=== PATIENT | female | born 1960 | race Caucasian/White ===

== ENCOUNTER 2019-11-13 03:12 | Emergency (ER) | payer BC ==
[2019-11-13] MEDS ORDERED: HYDROmorphone 1 MG/ML Syringe IVPUSH ONE (03:38)
[2019-11-13] MEDS ORDERED: Ondansetron 4 MG/2 ML SDV IVPUSH ONE (03:38)
[2019-11-13] MEDS ORDERED: Sodium Chloride 0.9% 1,000 ML IV SCH (03:45)
--- NOTE | 2019-11-13 03:45 | EDM.PDOC ---
ED HPI GENERAL MEDICAL PROBLEM - General Chief Complaint: Flank Pain Stated Complaint: LEFT SIDE PAIN Time Seen by Provider: 11/13/19 03:28 Source of Information: Reports: Patient History Limitations: Reports: No Limitations - History of Present Illness INITIAL COMMENTS - FREE TEXT/NARRATIVE: This is a 59-year-old female. She had onset of severe left flank pain about 1 hour prior to coming to the ER. She says she has a history of kidney stones in the past and this feels like a kidney stone. For the last 2 to 3 days she been having pressure in the left flank and some dysuria and her doctor put her on some Cipro 2 days ago for which she has been taking but it really has not helped her symptoms. With this severe pain this morning with that woke her she had some nausea but she has not had any vomiting. Due to the pain she comes to the ER for evaluation. She denies any fever or chills denies any cough or congestion. Left Flank Pain Score (Numeric/FACES): 9 - Related Data Allergies Allergy/AdvReac Type Severity Reaction Status Date / Time ketorolac [From Toradol] Allergy Severe Swollen Verified 11/13/19 03:19 Tongue tramadol Allergy Severe Swollen Verified 11/13/19 03:19 Tongue Home Meds: Home Meds Ciprofloxacin HCl [Cipro] 250 mg PO DAILY 11/13/19 [History] Escitalopram Oxalate [Lexapro] 10 mg PO DAILY 11/13/19 [History] Hydrocodone/Acetaminophen [Hydrocodone-Acetamin 5-325 mg] 1 each PO Q4H PRN #12 tablet 11/13/19 [Rx] Promethazine [Phenergan] 25 mg PO Q6H PRN #12 tab 11/13/19 [Rx] Past Medical History Genitourinary History: Reports: Renal Calculus Psychiatric History: Reports: Depression Social & Family History - Tobacco Use Smoking Status *Q: Never Smoker - Caffeine Use Caffeine Use: Reports: None - Recreational Drug Use Recreational Drug Use: No ED ROS GENERAL - Review of Systems Review Of Systems: See Below Constitutional: Denies: Fever, Chills HEENT: Reports: No Symptoms Respiratory: Reports: No Symptoms Cardiovascular: Reports: No Symptoms Endocrine: Reports: No Symptoms GI/Abdominal: Reports: Nausea. Denies: Abdominal Pain, Diarrhea, Vomiting : Reports: Dysuria, Flank Pain Musculoskeletal: Reports: No Symptoms Skin: Reports: No Symptoms Neurological: Reports: No Symptoms Psychiatric: Reports: No Symptoms ED EXAM, RENAL/ - Physical Exam Exam: See Below Exam Limited By: No Limitations General Appearance: Alert, WD/WN, Mild Distress. No: Anxious Eye Exam: Bilateral Eye: Normal Inspection Ears: Normal External Exam Nose: Normal Inspection Throat/Mouth: Normal Inspection, Normal Lips, Normal Voice, No Airway Compromise Head: Normocephalic Neck: Supple Respiratory/Chest: No Respiratory Distress, Lungs Clear, Normal Breath Sounds Cardiovascular: Regular Rate, Rhythm, No Murmur GI/Abdominal: Soft, Non-Tender Back Exam: Full Range of Motion, CVA Tenderness (L) Extremities: Normal Inspection, Normal Range of Motion Neurological: Alert, Oriented Psychiatric: Normal Affect, Normal Mood Skin Exam: Warm, Dry Course - Vital Signs Last Recorded V/S: Last Vital Signs Temp 97.9 F 11/13/19 03:20 Pulse 87 11/13/19 03:20 Resp 15 11/13/19 03:20 BP 150/102 H 11/13/19 03:20 Pulse Ox 96 11/13/19 03:20 - Orders/Labs/Meds Orders: Active Orders 24 hr Category Date Time Status Abdomen Pelvis wo Cont [CT] Stat Exams 11/13/19 03:39 Taken Sodium Chloride 0.9% [Normal Saline] 1,000 ml Med 11/13/19 03:45 Active IV ASDIRECTED Medication Orders Sodium Chloride (Normal Saline) 1,000 mls @ 1,000 mls/hr IV ASDIRECTED DAVID Last Admin: 11/13/19 03:43 Dose: 1,000 mls/hr Labs: Laboratory Tests 11/13/19 11/13/19 11/13/19 Range/Units 03:30 03:30 04:55 WBC 7.41 (3.98-10.04) K/mm3 RBC 4.50 (3.98-5.22) M/mm3 Hgb 11.5 (11.2-15.7) gm/dl Hct 35.8 (34.1-44.9) % MCV 79.6 (79.4-94.8) fl MCH 25.6 (25.6-32.2) pg MCHC 32.1 L (32.2-35.5) g/dl RDW Std Deviation 52.2 H (36.4-46.3) fL Plt Count 263 (182-369) K/mm3 MPV 10.8 (9.4-12.3) fl Neut % (Auto) 65.2 (34.0-71.1) % Lymph % (Auto) 20.5 (19.3-51.7) % [place] % (Auto) 13.0 H (4.7-12.5) % Eos % (Auto) 1.2 (0.7-5.8) Baso % (Auto) 0.1 (0.1-1.2) % Neut # (Auto) 4.83 (1.56-6.13) K/mm3 Lymph # (Auto) 1.52 (1.18-3.74) K/mm3 [place] # (Auto) 0.96 H (0.24-0.36) K/mm3 Eos # (Auto) 0.09 (0.04-0.36) K/mm3 Baso # (Auto) 0.01 (0.01-0.08) K/mm3 Sodium 143 (136-145) mEq/L Potassium 3.7 (3.5-5.1) mEq/L Chloride 108 H (98-107) mEq/L Carbon Dioxide 25 (21-32) mEq/L Anion Gap 13.7 (5-15) BUN 15 (7-18) mg/dL Creatinine 0.7 (0.55-1.02) mg/dL Est Cr Clr Drug Dosing 86.23 mL/min Estimated GFR (MDRD) > 60 (>60) mL/min BUN/Creatinine Ratio 21.4 H (14-18) Glucose 111 H (74-106) mg/dL Calcium 8.8 (8.5-10.1) mg/dL Total Bilirubin 0.4 (0.2-1.0) mg/dL AST 13 L (15-37) U/L ALT 22 (14-59) U/L Alkaline Phosphatase 118 H (46-116) U/L Total Protein 7.4 (6.4-8.2) g/dl Albumin 3.9 (3.4-5.0) g/dl Globulin 3.5 gm/dL Albumin/Globulin Ratio 1.1 (1-2) Urine Color Yellow (Yellow) Urine Appearance Clear (Clear) Urine pH 6.0 (5.0-8.0) Ur Specific [place] 1.025 (1.005-1.030) Urine Protein Trace H (Negative) Urine Glucose (UA) Negative (Negative) Urine Ketones Negative (Negative) Urine Occult Blood Trace-lysed H (Negative) Urine Nitrite Negative (Negative) Urine Bilirubin Negative (Negative) Urine Urobilinogen 0.2 (0.2-1.0) Ur Leukocyte Esterase Negative (Negative) Urine RBC 0-5 (0-5) /hpf Urine WBC Not seen (0-5) /hpf Ur Squamous Epith Cells 5-10 H (0-5) /hpf Urine Bacteria Rare (FEW) /hpf Urine Mucus Few (FEW) /hpf Meds: Medications Generic Name Dose Route Start Last Admin Trade Name Freq PRN Reason Stop Dose Admin Sodium Chloride 1,000 mls @ 1,000 mls/hr 11/13/19 03:45 11/13/19 03:43 Normal Saline IV 1,000 mls/hr ASDIRECTED DAVID Administration Discontinued Medications Generic Name Dose Route Start Last Admin Trade Name Freq PRN Reason Stop Dose Admin Hydromorphone HCl 0.5 mg 11/13/19 03:38 11/13/19 03:51 Dilaudid IVPUSH 11/13/19 03:39 0.5 mg ONETIME ONE Administration Ondansetron HCl 4 mg 11/13/19 03:38 11/13/19 03:43 Zofran IVPUSH 11/13/19 03:39 4 mg ONETIME ONE Administration - Radiology Interpretation Free Text/Narrative:: Scan of the abdomen shows renal stones but no ureteral stones and no hydronephrosis noted. - Re-Assessments/Exams Free Text/Narrative Re-Assessment/Exam: 11/13/19 05:39 To the patient regarding the test results. She is feeling much better now and she is happy that she does not have a bladder infection since she has been on the Cipro. Her white count is normal her electrolytes are normal I am going to discharge her to home with a urine strainer since I think she might have passed a kidney stone. Departure - Departure Time of Disposition: 05:40 Disposition: Home, Self-Care 01 Condition: Fair Clinical Impression: Renal stones, Left flank pain - Discharge Information *PRESCRIPTION DRUG MONITORING PROGRAM REVIEWED*: Not Applicable *COPY OF PRESCRIPTION DRUG MONITORING REPORT IN PATIENT RONA: Not Applicable Prescriptions: Hydrocodone/Acetaminophen [Hydrocodone-Acetamin 5-325 mg] 1 each PO Q4H PRN #12 tablet PRN Reason: Pain Promethazine [Phenergan] 25 mg PO Q6H PRN #12 tab PRN Reason: Nausea Instructions: Kidney Stones, [id number] Referrals: PCP,None [Primary Care Provider] - Forms: ED Department Discharge Additional Instructions: Drink lots of fluids over the next 24 hours, continue with the Cipro, take the medicine for nausea as needed, take the medicine for pain as needed, strain your urine with a urine strainer every time you urinate, follow-up with your family doctor this week for recheck, return to the ER if needed Sepsis Event Note - Evaluation Sepsis Screening Result: No Definite Risk - Focused Exam Vital Signs: Vital Signs Temp Pulse Resp BP Pulse Ox 11/13/19 03:20 97.9 F 87 15 150/102 H 96 Date Exam was Performed: 11/13/19 Time Exam was Performed: 05:39 - My Orders Last 24 Hours: My Active Orders 11/13/19 03:39 Abdomen Pelvis wo Cont [CT] Stat 11/13/19 03:45 Sodium Chloride 0.9% [Normal Saline] 1,000 ml IV ASDIRECTED - Assessment/Plan Last 24 Hours: My Active Orders 11/13/19 03:39 Abdomen Pelvis wo Cont [CT] Stat 11/13/19 03:45 Sodium Chloride 0.9% [Normal Saline] 1,000 ml IV ASDIRECTED
--- NOTE | 2019-11-13 10:11 | CT ---
CT abdomen and pelvis Technique: Multiple axial sections were obtained from above the dome of the diaphragm inferiorly through the pubic symphysis. Intravenous and oral contrast not utilized. Study has been performed as a ureteral stone protocol. Findings: Kidneys show multiple small and nonobstructing calculi. Small area of increased density is seen within the mid to lower left kidney measuring 6 mm. This may represent a small hemorrhagic cyst or renal pyramid calcification. No ureteral dilatation or ureteral stone is seen. Visualized lung bases show nothing acute. Noncontrast appearance of the liver shows no focal parenchymal abnormality. Spleen appears within normal limits. Adrenal glands show no nodule. Pancreas is within normal limits. Gallbladder contains no calcified gallstones. Aorta shows atherosclerotic calcification which continues into the iliac vessels without aneurysm. No retroperitoneal adenopathy or mesenteric abnormalities are seen. No pelvic mass or adenopathy is identified. Appendix is visualized and is normal in size. Bone window settings were reviewed. Compression deformity noted of T12 which is most likely old. Vacuum disc phenomena and disc space narrowing noted at L4-5. Lesser degenerative change scattered within the spine. Impression: 1. Multiple nonobstructing calculi within both kidneys. 6 mm area of increased density within the mid to lower left kidney as noted above. No ureteral dilatation or ureteral stone is seen. 2. Other findings believed to be incidental and nonacute. Diagnostic code #3 This report was dictated in MDT I agree with preliminary report from [facility], finalized on 11/13/19, 5:27 AM Central Daylight Time
== END 2019-11-13 06:01 | disposition home or self-care (01) ==
LOC: JD.ED 03:12
DX: N20.0 Calculus of kidney (principal); F32.9 Major depressive disorder, single episode, unspecified; Z88.5 Allergy status to narcotic agent; Z88.6 Allergy status to analgesic agent; Z79.899 Other long term (current) drug therapy
CPT/HCPCS: 36415; 74176; 80053; 81001; 85025; 96361; 96374; 96375; 99284; J1170; J2405; J7030; 99283